=== PATIENT | male | born 1955 | race Caucasian/White ===

== ENCOUNTER → 2016-10-28 | Day surgery (SDC) | payer OTHER ==
[~2016-10-28] VITALS: Ht 188 cm; Wt 102.0 kg
[~2016-10-28] MED LIST: DIGO125T73 PO; FURO40TA4 PO; Heparin 1,000 Units/mL 2 mL Inj INJ SCH; Ketamine 10 mg/mL 20 mL Inj ONE; Lactated Ringer's 1,000 ML IV SCH; METO-272 PO; MULT-1018 PO; MetoCLOpramide 5 mg/mL 2 mL Inj IVPUSH PRN; OMEP40CA36 PO; Ondansetron 2 mg/mL 2 mL Inj IVPUSH PRN; Propofol 10,000 mCg/mL 20 mL Inj ONE; VALS80TA25 PO; WARF5TAB PO; ZOV800 PO; fentaNYL-PF 50 mCg/mL 2 mL Inj ONE
[2016-10-28 11:42] VITALS: BP 126/83; PULSE 74; RESP 16; O2SAT 96
[2016-10-28 12:00] LABS: INR 1.14 ratio
--- NOTE | 2016-10-28 12:00 | PCM.HPANE ---
Patient Data Date of Service: Oct 28, 2016 Surgeon Admitting Provider: Attending Provider:Arabella Armstrong MD Primary Care Physician:Jefferson Bundy MD Other Provider:Essence Muñoz Anesthesia Reason for Visit Acute Leukemia Ht/WT & BMI Height (Feet): 6 Height (Inches): 2.00 Weight (Kilograms): 102.000 Body Mass Index 28.86 Allergies Coded Allergies: cytarabine (Verified Allergy, Severe, 03/27/15) HIVES Past Anesthesia History Anesthesia History: Denies:: Abnormal Airway, Anesthesia Reactions, Difficult Intubation, Fam Anesthesia Reaction, Fam Malignant Hypertherm, Malignant Hyperthermia Diabetes History Hx Diabetes?: No MRSA MRSA: No Medications Blood Thinner: Coumadin Last Dose Blood Thinner: Oct 22, 2016 Hypertension Medication: Yes Home Meds Incl Beta Aurora: Yes Date Beta Aurora Taken: Oct 28, 2016 Time Beta Aurora Taken: 08:00 Reported Medications Warfarin Sodium (Coumadin)5 Mg Tablet3 Mg PO DAILY 30 Days Ref 0 10/03/15 Multivitamin (Multi Vitamin Daily)1 Each Tablet1 Each PO DAILY 30 Days Ref 0 01/18/15 Acyclovir 800 Mg [id number] Mg PO BID Ref 0 01/18/15 Metoprolol Succinate ER 50 Mg Tab.[id number] Mg PO BID 30 Days Ref 0 08/24/14 Valsartan 80 Mg [id number] Mg PO DAILY 02/01/14 Furosemide 40 Mg [id number] Mg PO DAILY 30 Days 02/01/14 Digoxin 125 Mcg Tablet0.25 Mcg PO DAILY Ref 0 02/01/14 Discontinued Reported Medications Omeprazole 40 Mg Capsule.dr40 Mg PO DAILY Ref 0 10/03/15 History History of ENT Problems?: No HEENT History: Positive for:: Dysphagia Denies:: Abnormal Airway Difficult Intubation Hearing Problem Denture Type: None Teeth Condition: Within Normal Limits Hx of Heart Problems?: Yes Cardiovascular History: Positive for:: AICD Atrial Fibrillation Cardiac Surgery (ICD) Congestive Heart Failure (h/o cardiomyopathy, EF recovering) Hypertension Irregular Heartbeat (h/o v-tach) Pacemaker (DEF/PACEMAKER) Denies:: Chest Pain Valvular Heart Disease Other Cardiac History: 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 Hx of Respiratory Problem?: Yes Respiratory History: Positive for:: Use of C-PAP Machine (ARIADNA) Denies:: Asthma COPD Cough Hemoptysis Pneumonia Tuberculosis Hx Neurologic Problems?: No Neurological History: Denies:: CVA Dementia Hx of GI Problems?: No Hx of Problems?: No Hx Musculoskeletal Problems?: No Musculoskeletal History: Positive for:: Back Injury Denies:: Joint Replacement Hx of Psycho/Social Problems?: No Psycho Social History: Denies:: Anxiety Hx Depression Hx Surgeries?: Yes (BONE MARROW TRANSPLANT 10/12/14,BACK SURG, pace maker) Hx Any Other Health Problems?: No Other History: Positive for:: Cancer (lymphoma, aml, bone marrow tx 2014) Denies:: Thyroid Disease History Blood Transfusions: Positive for:: Accept Blood Products? Blood Transfusions Denies:: Blood Transfuse Reaction Hx Diabetes: No Hx Alcohol Use: Yes (once in a while)Hx Substance Use: No Smoking Status: Never Smoker Have You Smoked inLast 12 mo: No Stop/Bang Treated for Sleep Apnea?: Yes Do You Have a CPAP Machine?: Yes ARIADNA Category 4 OutPt Procedure: Yes Risk Assessment Category Category 1A: Patient has history of documented sleep apnea, and HAS NOT received any narcotic, sedative or anesthesia administration during this stay. Category 1B: Patient has history of documented sleep apnea, and HAS received any narcotic , sedative or anesthesia administration during this stay Category 2: Patient has SUSPECTED Obstructive Sleep Apnea, and HAS received any narcotic , sedative or anesthesia administration during this stay. Category 3: Patient has SUSPECTED Obstructive Sleep Apnea and HAS NOT received narcotic, sedative or anesthesia administration during this stay. Category 4: Outpatient in Procedural Areas with known sleep apnea or who screen positive for High Risk via the STOP/BANG questionnaire. Exam Exam Vital Signs Vital Signs Date Time Temp Pulse Resp B/P Pulse Ox O2 Delivery O2 Flow Rate FiO2 10/28/16 11:42 36.9 74 16 126/83 96 Room Air General Appearance: Alert, Oriented X3, Cooperative, No Acute Distress HEENT/AIRWAY: MP 1 Lungs: Clear to Auscultation, Normal Air Movement Heart: Exam Unremarkable, Regular Rate/Rhythm, No Murmurs/Rubs/Gallops Meds/Labs/Diagnostics Labs Test 10/28/16 11:30 Hematocrit 43.7% (41.0-50.0) Platelet Count 194bil/L (150-400) Plan Impression Patient chart reviewed, patient interviewed and anesthestic plan with risks, benefits, and alternatives discussed, and informed consent obtained. NPO per Anesth. Guidelines: Yes ASA Physical Status: ASA3 Severe Disease Anesthetic Plan: [id number] Mcmullen/Risks/Altern/Consents: Yes HP Complete Prior to Induction: Yes Lizandro Elizabeth MD Oct 28, 2016 12:00
--- NOTE | 2016-10-28 12:55 | PCM.ANEP1 ---
Post Anesthesia PACU Phase 1 Assessment Date of Service: Oct 28, 2016 Vital Signs 103/58 75 12 96% NC Anesthetic Administered: MAC Level of Alertness: Sleepy, easy to arouse PEARCE's with Equal Strength: Yes Pain: No Nausea or Vomiting: No CV Function & Hydration Stable: Yes Airway Device: Oxygen Delivery: Nasal Cannula Lungs: Clear to Auscultation, Normal Air Movement Dermatome Level: Full Sensation PACU Phase 2 Assessment Complications: No Follow up Care: No Patient Instructions Provided: Yes Lizandro Elizabeth MD Oct 28, 2016 12:55
[2016-10-28 13:25] VITALS: BP 128/77; PULSE 71; RESP 16; O2SAT 98
--- NOTE | 2016-10-28 13:38 | NUR ---
Pt discharged to home, ambulatory, accompanied by spouse. Pt's VSS, L-spine puncture site CDI, IV discontinued. Pt given all discharge instructions and had no further questions at time of d/c.
== END | disposition home or self-care (01) ==
LOC: SOUO 00:26
PROVIDERS: ATTEND Internal Medicine Hematology & Oncology
DX: C92.Z0 Other myeloid leukemia not having achieved remission (principal); Z85.72 Personal history of non-Hodgkin lymphomas; Z94.84 Stem cells transplant status; I42.0 Dilated cardiomyopathy; Z95.810 Presence of automatic (implantable) cardiac defibrillator; I48.0 Paroxysmal atrial fibrillation; Z79.01 Long term (current) use of anticoagulants
CPT/HCPCS: 36415; 85014; 85049; 85610; J1885; J2250; J3010